=== PATIENT | male | born 1970 | race American Indian/Alaskan Native ===

== ENCOUNTER 2021-08-26 08:50 | Inpatient (IN) | payer MEDICAID ==
[2021-08-26] MEDS ORDERED: IPRATROPIUM 0.02% NEBU 2.5 ML IH ONE (09:47)
[2021-08-26] MEDS ORDERED: ALBUTEROL 2.5 MG/3 ML NEBU IH ONE (09:47)
--- NOTE | 2021-08-26 10:47 | XRay Report ---
CHEST 1 VIEW INDICATION: Dyspnea. COMPARISON: None FINDINGS: Support devices: None. Heart: Within normal limits. Lungs/Pleura: Mild central pulmonary venous congestion is suspected. No convincing infiltrate, pleura l effusion or pneumothorax. Additional findings: None. IMPRESSION: Mild pulmonary venous congestion Signer Name: Ian Woodard Jr, MD Signed: 08/26/2021 10:43 AM Workstation Name: [id number]
[2021-08-26 10:50] LABS: Hematocrit 53.3 % (35.5-45.6); Mean Corpuscular HGB Conc 32 % (32-34); Mean Corpuscular Volume 100 fl (84-94); Platelet Count 295 K/mm3 (140-440); Red Blood Count 5.33 M/mm3 (3.65-5.03); Red Cell Distribution Width 15.5 % (13.2-15.2)
[2021-08-26 11:11] LABS: Creatine Kinase MB 3.2 ng/mL (0.0-4.0)
[2021-08-26 11:12] LABS: Alanine Aminotransferase 24 units/L (7-56); Albumin 3.7 g/dL (3.9-5); BUN/Creatinine Ratio 8; Blood Urea Nitrogen 7 mg/dL (9-20); Calcium 8.8 mg/dL (8.4-10.2); Hemolysis Index 3
[2021-08-26 11:14] LABS: Bacteria,Urine 1+ /HPF (Negative); Bilirubin,Urine NEG (Negative); Blood,Urine SM (Negative); Color,Urine Yellow (Yellow); Hyaline Casts,Urine 1 /LPF; Mucus,Urine FEW /HPF
[2021-08-26 11:37] LABS: Amphetamine Screen,Urine Negative; Benzodiazepines Screen,Urine Negative; Cannabinoid Screen,Urine Negative; Methadone Screen,Urine Negative; Opiate Screen,Urine Negative
[2021-08-26 11:54] LABS: Cocaine Screen,Urine Positive
[2021-08-26 12:39] LABS: Total Cells Counted 100
[2021-08-26 12:40] LABS: Basophils % (Manual) 0 % (0.0-1.8); Eosinophils % (Manual) 0 % (0.0-4.3); Macrocytosis 1+; Platelet Estimate Consistent w Auto
--- NOTE | 2021-08-26 14:26 | Emergency Department Report ---
ED Shortness of Breath HPI - General Chief Complaint: Dyspnea/Respdistress Stated Complaint: SOB Time Seen by Provider: 08/26/21 09:47 Source: patient Mode of arrival: Wheelchair Limitations: No Limitations, Physical Limitation - History of Present Illness Initial Comments: Pt drove self to ER, called the triage from his car stating he was too SOB to ge t into the ER. States he is in a white toyota cecilia in the police parking. Staff out to the parking area, no car there. Pt then found in the ED, got himself in. SOB, sats 65% on RA. O2 per Nonbrebreather mask placed and sats up to 100%. States has been SOB x a week. MD Complaint: shortness of breath -: Gradual, days(s) Improves With: oxygen, rest Worsens With: exertion Associated Symptoms: denies other symptoms Treatments Prior to Arrival: none - Related Data Home Oxygen Therapy: No Home Medications Medication Instructions Recorded Confirmed Last Taken amLODIPine 08/26/21 1 Day Ago ~08/25/21 Allergies Allergy/AdvReac Type Severity Reaction Status Date / Time No Known Allergies Allergy Unverified 08/26/21 11:34 ED Review of Systems ROS: Stated complaint: SOB Other details as noted in HPI Constitutional: denies: chills, fever Eyes: denies: eye pain, eye discharge, vision change ENT: denies: ear pain, throat pain Respiratory: denies: cough, shortness of breath, wheezing Cardiovascular: denies: chest pain, palpitations Endocrine: no symptoms reported Gastrointestinal: denies: abdominal pain, nausea, diarrhea Genitourinary: denies: urgency, dysuria Musculoskeletal: denies: back pain, joint swelling, arthralgia Skin: denies: rash, lesions Neurological: denies: headache, weakness, paresthesias Psychiatric: denies: anxiety, depression Hematological/Lymphatic: denies: easy bleeding, easy bruising ED Past Medical Hx - Past Medical History Previous Medical History?: No Hx Hypertension: No Hx CVA: No - Medications Home Medications: Home Medications Medication Instructions Recorded Confirmed Last Taken Type amLODIPine 08/26/21 1 Day Ago History ~08/25/21 ED Physical Exam - General Limitations: No Limitations, Physical Limitation General appearance: alert, in distress - Head Head exam: Present: atraumatic, normocephalic - Eye Eye exam: Present: normal appearance - ENT ENT exam: Present: mucous membranes moist - Neck Neck exam: Present: normal inspection - Respiratory Respiratory exam: Present: decreased breath sounds. Absent: respiratory distress - Cardiovascular Cardiovascular Exam: Present: regular rate, normal rhythm. Absent: systolic murmur, diastolic murmur, rubs, gallop - GI/Abdominal GI/Abdominal exam: Present: soft, normal bowel sounds - Rectal Rectal exam: Present: deferred - Extremities Exam Extremities exam: Present: normal inspection - Back Exam Back exam: Present: normal inspection - Neurological Exam Neurological exam: Present: alert, oriented X3 - Psychiatric Psychiatric exam: Present: normal affect, normal mood - Skin Skin exam: Present: warm, dry, intact, normal color. Absent: rash ED Course Vital Signs 08/26/21 08/26/21 08/26/21 09:10 09:14 09:48 Temperature 98.2 F Pulse Rate 101 H Respiratory 28 H Rate Blood Pressure Blood Pressure 141/67 [Right] O2 Sat by Pulse 65 L 100 93 Oximetry 08/26/21 08/26/21 08/26/21 10:01 10:15 10:31 Temperature Pulse Rate 98 H 93 H 95 H Respiratory 26 H 22 25 H Rate Blood Pressure 124/65 121/67 135/91 Blood Pressure [Right] O2 Sat by Pulse 95 96 97 Oximetry 08/26/21 08/26/21 08/26/21 10:45 11:01 11:15 Temperature Pulse Rate 95 H 98 H 94 H Respiratory 28 H 25 H 23 Rate Blood Pressure 131/61 150/80 147/78 Blood Pressure [Right] O2 Sat by Pulse 98 96 94 Oximetry 08/26/21 08/26/21 08/26/21 11:31 11:36 11:45 Temperature Pulse Rate 93 H 93 H Respiratory 23 22 21 Rate Blood Pressure 138/65 143/62 Blood Pressure [Right] O2 Sat by Pulse 95 96 96 Oximetry 08/26/21 12:01 Temperature Pulse Rate 93 H Respiratory 24 Rate Blood Pressure 132/69 Blood Pressure [Right] O2 Sat by Pulse 95 Oximetry ED Medical Decision Making - Lab Data Result diagrams: 08/26/21 10:13 08/26/21 10:13 Critical care attestation.: If time is entered above; I have spent that time in minutes in the direct care of this critically ill patient, excluding procedure time. ED Disposition Clinical Impression: SOB (shortness of breath), Respiratory failure Disposition: ADMITTED INPATIENT Is pt being admited?: Yes Does the pt Need Aspirin: No Condition: Stable Referrals: PRIMARY CARE, [Primary Care Provider] - 3-5 Days
--- NOTE | 2021-08-26 14:37 | Cat Scan Report ---
CTA CHEST WITH CONTRAST INDICATION / CLINICAL INFORMATION: SOB. TECHNIQUE: Axial CT images were obtained through the chest after injection of 90 cc of Omnipaque 350 IV contrast. 3 plane MIP and/or 3D reconstructions were produced. All CT scans at this location are p erformed using CT dose reduction for ALARA by means of automated exposure control. COMPARISON: Chest radiograph dated 08/26/2021 FINDINGS: PULMONARY ARTERIES: No pulmonary emboli. THORACIC AORTA: No significant abnormality. HEART: No significant abnormality. CORONARY ARTERY CALCIFICATION: None. MEDIASTINUM / PORFIRIO: No significant abnormality. PLEURA: There is a small left pleural effusion which appears to be loculated. No pneumothorax. LUNGS: There is some mosaic attenuation the lungs which may represent edema or small airways disease. There is some minimal peripheral groundglass density in the right upper lung zone. There is atelecta sis in the lower lobes. ADDITIONAL FINDINGS: None. UPPER ABDOMEN: There is fatty infiltration of the liver. SKELETAL STRUCTURES: No acute abnormality. IMPRESSION: 1. No CT evidence for pulmonary embolism. 2. There is a small loculated appearing left pleural effusion. There is mild atelectasis in the lower lobes. There is some mild mosaic attenuation the lungs which is not specific could represent edema o r lower airways disease. There is some minimal peripheral groundglass density in the right upper lobe . Signer Name: Erick Lobo MD Signed: 08/26/2021 2:33 PM Workstation Name: [id number]
--- NOTE | 2021-08-26 15:33 | History and Physical Report ---
History of Present Illness Chief complaint: I cannot breathe History of present illness: 50 YO Male with Obesity Hypoventilation Syndrome, HTN, COPD, Nicotine Dependence presents to ED for evaluation. Patient reports "I cannot breathe". Patient states that he has experienced difficulty breathing over the past 1 week with persistent and worsening symptoms over the same timeframe. Patient transported to [facility] via private vehicle for further care and evaluation of the aforementioned symptoms. The patient was seen and evaluated in the emergency department. All lab and imaging studies reviewed. Patient found to have a pulse oximetry of 65% on room air which is consistent with acute hypoxemic respiratory failure. The patient was placed on supplemental oxygen via nonrebreather mask with mild improvement in symptoms. Patient continued to exhibit shortness of breath. Patient found to be tripoding, using sensory muscles to breathe. Patient is unable to speak in complete sentences. Patient placed on noninvasive positive pressure ventilation with mild improvement in symptoms. Patient also found to have right upper lobe pneumonia. Patient admitted to medical floor and initiated on pneumonia protocol. Patient denies fever, chills, chest pain, palpitation, skin rash, recent contact, trauma, unilateral leg swelling, calf pain, individual/family history of DVT/PE/bleeding/blood clotting disorders, or known exposure to COVID-19. No prior admission for review. All medication listed at time of admission has been reconciled. Advanced care planning conducted in ED. Past History Past Medical History: hypertension Past Surgical History: No surgical history, Other (Reviewed) Social history: single, smoking. denies: alcohol abuse, prescription drug abuse Family history: diabetes, hypertension Medications and Allergies Allergies Allergy/AdvReac Type Severity Reaction Status Date / Time No Known Allergies Allergy Unverified 08/26/21 11:34 Home Medications Medication Instructions Recorded Confirmed Last Taken Type amLODIPine 08/26/21 1 Day Ago History ~08/25/21 Review of Systems Constitutional: no weight loss, no weight gain, no fever, no chills Ears, nose, mouth and throat: no ear discharge, no nasal congestion Cardiovascular: no chest pain, no rapid/irregular heart beat, no edema Respiratory: cough with sputum, shortness of breath, no cough, no excessive sp utum Gastrointestinal: no abdominal pain, no nausea, no constipation Genitourinary Male: no hematuria, no flank pain, no discharge, no urinary frequency, no urinary hesitancy Rectal: no pain, no incontinence, no bleeding Musculoskeletal: no neck stiffness, no neck pain, no shooting arm pain Integumentary: no rash, no redness, no sores, no boils Neurological: no head injury, no paralysis, no weakness, no parathesias, no tingling Psychiatric: no anxiety, no memory loss, no sleep disturbances, no change in appetite, no change in libido, no disorientation Endocrine: no cold intolerance, no heat intolerance, no excessive thirst, no polyuria, no excessive sweating Hematologic/Lymphatic: no easy bruising, no easy bleeding Allergic/Immunologic: no urticaria, no allergic rhinitis, no wheezing Exam - Constitutional Vitals: Temp Pulse Resp BP Pulse Ox 98.2 F 93 H 24 132/69 95 08/26/21 09:10 08/26/21 12:01 08/26/21 12:01 08/26/21 12:01 08/26/21 12:01 General appearance: Present: mild distress, obese - EENT Eyes: Present: PERRL ENT: hearing intact, clear oral mucosa - Neck Neck: Present: supple, normal ROM - Respiratory Respiratory effort: labored, accessory muscle use, stridor Respiratory: bilateral: diminished, rhonchi - Cardiovascular Heart Sounds: Present: S1 & S2. Absent: rub, click - Extremities Extremities: pulses symmetrical, No edema Peripheral Pulses: within normal limits - Abdominal General gastrointestinal: Present: soft, non-tender, non-distended, normal bowel sounds Male genitourinary: Present: normal - Integumentary Integumentary: Present: clear, warm, dry - Musculoskeletal Musculoskeletal: gait normal, strength equal bilaterally - Psychiatric Psychiatric: appropriate mood/affect, intact judgment & insight - Neurologic Neurologic: CNII-XII intact, moves all extremities HEART Score - HEART Score Troponin: Troponin T < 0.010 ng/mL (0.00-0.029) 08/26/21 10:13 Results - Labs CBC & Chem 7: 08/26/21 10:13 08/26/21 10:13 Labs: Abnormal lab results 08/26/21 08/26/21 08/26/21 Range/Units 10:13 10:13 10:26 RBC 5.33 H (3.65-5.03) M/mm3 Hgb 17.0 H (11.8-15.2) gm/dl Hct 53.3 H (35.5-45.6) % MCV 100 H (84-94) fl RDW 15.5 H (13.2-15.2) % Seg Neuts % (Manual) 84.0 H (40.0-70.0) % Lymphocytes % (Manual) 8.0 L (13.4-35.0) % Monocytes % (Manual) 8.0 H (0.0-7.3) % Seg Neutrophils # Man 8.7 H (1.8-7.7) K/mm3 Lymphocytes # (Manual) 0.8 L (1.2-5.4) K/mm3 D-Dimer (0-234) ng/mlDDU Potassium 3.5 L (3.6-5.0) mmol/L Chloride 95.8 L (98-107) mmol/L Carbon Dioxide 32 H (22-30) mmol/L BUN 7 L (9-20) mg/dL Glucose 170 H (75-100) mg/dL Albumin 3.7 L (3.9-5) g/dL Urine WBC (Auto) 48.0 H (0.0-6.0) /HPF 08/26/21 Range/Units 11:00 RBC (3.65-5.03) M/mm3 Hgb (11.8-15.2) gm/dl Hct (35.5-45.6) % MCV (84-94) fl RDW (13.2-15.2) % Seg Neuts % (Manual) (40.0-70.0) % Lymphocytes % (Manual) (13.4-35.0) % Monocytes % (Manual) (0.0-7.3) % Seg Neutrophils # Man (1.8-7.7) K/mm3 Lymphocytes # (Manual) (1.2-5.4) K/mm3 D-Dimer 356.97 H (0-234) ng/mlDDU Potassium (3.6-5.0) mmol/L Chloride (98-107) mmol/L Carbon Dioxide (22-30) mmol/L BUN (9-20) mg/dL Glucose (75-100) mg/dL Albumin (3.9-5) g/dL Urine WBC (Auto) (0.0-6.0) /HPF Assessment and Plan - Patient Problems (1) Acute hypoxemic respiratory failure Current Visit: Yes Status: Acute Plan to address problem: Chest x-ray, supplemental oxygen, pulse oximetry, nebulizer therapy, D-dimer, CTA chest, noninvasive positive pressure ventilation as clinically indicated. (2) Pneumonia Current Visit: Yes Status: Acute Plan to address problem: Pneumonia protocol: Chest x-ray, CBC, CMP, supplemental oxygen, pulse oximetry, nebulizer therapy, IV antibiotic therapy, blood culture. (3) Hypertension Current Visit: Yes Status: Acute Qualifiers: Hypertension type: primary hypertension Qualified Code(s): I10 - Essential (primary) hypertension Plan to address problem: Monitor blood pressure every shift, continue medical management. (4) COPD (chronic obstructive pulmonary disease) Current Visit: Yes Status: Acute Qualifiers: COPD type: COPD with acute lower respiratory infection Qualified Code(s): J44.0 - Chronic obstructive pulmonary disease with (acute) lower respiratory infection Plan to address problem: Supplemental oxygen, pulse oximetry, nebulizer therapy, IV steroid therapy, chest x-ray, supportive care, CT chest. (5) Obesity hypoventilation syndrome Current Visit: Yes Status: Acute Plan to address problem: Balanced diet, increase physical activity at discharge, outpatient pulmonary follow-up for sleep study. (6) Cocaine dependence Current Visit: Yes Status: Acute Qualifiers: Substance use status: uncomplicated Qualified Code(s): F14.20 - Cocaine dependence, uncomplicated Plan to address problem: Patient counseled regarding abstinence. Patient acknowledges understanding and agreement with care plan. (7) Nicotine dependence Current Visit: Yes Status: Acute Qualifiers: Nicotine product type: cigarettes Substance use status: in withdrawal Qualified Code(s): F17.213 - Nicotine dependence, cigarettes, with withdrawal Plan to address problem: Smoking cessation counseling, behavior change counseling, +15 minutes. (8) DVT prophylaxis Current Visit: Yes Status: Acute Plan to address problem: SCD to bilateral lower extremities while in bed, patient is ambulatory (9) Advance care planning Current Visit: Yes Status: Acute Plan to address problem: Disease education conducted, care plan discussed, diagnoses discussed, prognosis discussed, patient is full code. Patient acknowledges understanding and agreement with care plan, +30 minutes.
[2021-08-26] MEDS ORDERED: ONDANSETRON 4 MG/2 ML INJ IV PRN (16:00)
[2021-08-26] MEDS ORDERED: ALBUTEROL 2.5 MG/3 ML NEBU IH PRN (17:00)
[2021-08-26] MEDS ORDERED: oxyCODONE /ACETAMINOPHEN 5-325MG TAB PO PRN (17:00)
[2021-08-26] MEDS ORDERED: ACETAMINOPHEN 325 MG TAB PO PRN (17:00)
[2021-08-26] MEDS ORDERED: HYDROmorphone 1 MG/1 ML INJ IV PRN (17:00)
[2021-08-26] MEDS: cefTRIAXone/NS 2 GM/100 ML 2 GM/100 ML BAG IV SCH (17:23)
[2021-08-26] MEDS: methylPREDNISolone Sod Succinate 40 MG/1 ML INJ IV SCH (22:51)
[2021-08-27 08:23] LABS: Hematocrit 52.1 % (35.5-45.6); Hemoglobin 16.6 gm/dl (11.8-15.2); Mean Corpuscular HGB Conc 32 % (32-34); Mean Corpuscular Volume 100 fl (84-94); Platelet Count 266 K/mm3 (140-440); Red Blood Count 5.19 M/mm3 (3.65-5.03); Red Cell Distribution Width 15.2 % (13.2-15.2)
--- NOTE | 2021-08-27 08:23 | Progress Note ---
Assessment and Plan - Patient Problems (1) Acute hypoxemic respiratory failure Current Visit: Yes Status: Acute Plan to address problem: Chest x-ray, supplemental oxygen, pulse oximetry, nebulizer therapy, D-dimer, CTA chest, noninvasive positive pressure ventilation as clinically indicated. Patient currently on 5 L. We will continue to wean as tolerated. Diuresis Smoking cessation Weight loss and increased exercise. (2) Pneumonia Current Visit: Yes Status: Acute Plan to address problem: Pneumonia protocol: Chest x-ray, CBC, CMP, supplemental oxygen, pulse oximetry, nebulizer therapy, Azithromycin Follow blood culture data. (3) Hypertension Current Visit: Yes Status: Acute Qualifiers: Hypertension type: primary hypertension Qualified Code(s): I10 - Essential (primary) hypertension Plan to address problem: Monitor blood pressure every shift, continue medical management. If remains elevated a.m. we will add losartan 50 mg daily. (4) COPD (chronic obstructive pulmonary disease) Current Visit: Yes Status: Acute Qualifiers: COPD type: COPD with acute lower respiratory infection Qualified Code(s): J44.0 - Chronic obstructive pulmonary disease with (acute) lower respiratory infection Plan to address problem: Supplemental oxygen, pulse oximetry, nebulizer therapy, IV steroid therapy, chest x-ray, supportive care, CT chest. (5) Obesity hypoventilation syndrome Current Visit: Yes Status: Acute Plan to address problem: Balanced diet, increase physical activity at discharge, outpatient pulmonary follow-up for sleep study. (6) Cocaine dependence Current Visit: Yes Status: Acute Qualifiers: Substance use status: uncomplicated Qualified Code(s): F14.20 - Cocaine dependence, uncomplicated Plan to address problem: Patient counseled regarding abstinence. Patient acknowledges understanding and agreement with care plan. (7) Nicotine dependence Current Visit: Yes Status: Acute Qualifiers: Nicotine product type: cigarettes Substance use status: in withdrawal Qualified Code(s): F17.213 - Nicotine dependence, cigarettes, with withdrawal Plan to address problem: Smoking cessation counseling, behavior change counseling, +15 minutes. (8) DVT prophylaxis Current Visit: Yes Status: Acute Plan to address problem: SCD to bilateral lower extremities while in bed, patient is ambulatory (9) Advance care planning Current Visit: Yes Status: Acute Plan to address problem: Disease education conducted, care plan discussed, diagnoses discussed, prognosis discussed, patient is full code. Patient acknowledges understanding and agreement with care plan, +24. Subjective Date of service: 08/27/21 Principal diagnosis: Acute hypoxic respiratory failure #2 pneumonia Interval history: 50 YO Male with Obesity Hypoventilation Syndrome, HTN, COPD, Nicotine Dependence presents to ED for evaluation. Patient reports "I cannot breathe". Patient states that he has experienced difficulty breathing over the past 1 week with persistent and worsening symptoms over the same timeframe. Patient transported to [facility] via private vehicle for further care and evaluation of the aforementioned symptoms. The patient was seen and evaluated in the emergency department. All lab and imaging studies reviewed. Patient found to have a pulse oximetry of 65% on room air which is consistent with acute hypoxemic respiratory failure. 08/26/2021 Patient now on 5 L of oxygen. Patient loud snoring upon presentation to the [facility] consistent with obstructive sleep apnea. Objective - Constitutional Vitals: Vital Signs - 12hr 08/26/21 08/26/21 08/26/21 20:31 20:41 20:51 Temperature Pulse Rate 96 H 101 H 97 H Respiratory 25 H 29 H 24 Rate Blood Pressure 140/72 139/67 139/67 Blood Pressure [Right] O2 Sat by Pulse 96 96 96 Oximetry 08/26/21 08/26/21 08/26/21 21:01 21:11 21:21 Temperature Pulse Rate 96 H 100 H 97 H Respiratory 26 H 25 H 25 H Rate Blood Pressure 136/69 121/73 121/73 Blood Pressure [Right] O2 Sat by Pulse 95 95 96 Oximetry 08/26/21 08/26/21 08/26/21 21:31 21:41 21:51 Temperature Pulse Rate 96 H 104 H 110 H Respiratory 27 H 25 H 30 H Rate Blood Pressure 127/60 128/72 128/72 Blood Pressure [Right] O2 Sat by Pulse 94 91 94 Oximetry 08/26/21 08/26/21 08/26/21 22:01 22:11 22:21 Temperature Pulse Rate 103 H 98 H 95 H Respiratory 28 H 24 23 Rate Blood Pressure 128/72 128/72 128/72 Blood Pressure [Right] O2 Sat by Pulse 94 94 93 Oximetry 08/26/21 08/26/21 08/26/21 22:31 22:55 23:10 Temperature Pulse Rate 103 H 101 H Respiratory 27 H 20 Rate Blood Pressure 128/72 121/78 Blood Pressure 128/72 [Right] O2 Sat by Pulse 95 93 95 Oximetry 08/26/21 08/26/21 08/27/21 23:11 23:53 03:59 Temperature 97.7 F Pulse Rate 103 H Respiratory 22 Rate Blood Pressure 156/70 Blood Pressure [Right] O2 Sat by Pulse 94 92 93 Oximetry 08/27/21 04:00 Temperature 98.6 F Pulse Rate 99 H Respiratory 22 Rate Blood Pressure Blood Pressure 154/81 [Right] O2 Sat by Pulse 92 Oximetry General appearance: Present: no acute distress, obese, other (Loud snoring) - EENT Eyes: PERRL, EOM intact ENT: other (Large neck circumference) - Neck Neck: no rigidity, no masses or JVD, no cervical LAD, no carotid bruits - Respiratory Respiratory: bilateral: diminished, rhonchi - Cardiovascular Rhythm: regular Heart Sounds: Present: S1 & S2. Absent: gallop, rub Extremities: Full ROM Extremity abnormal: edema, other (Normal pulses no erythema no ulcerations) - Gastrointestinal General gastrointestinal: Present: soft, normal bowel sounds, other (Morbidly obese ascites) - Integumentary Integumentary: clear, warm, dry - Musculoskeletal Musculoskeletal: 1, strength equal bilaterally - Neurologic Neurologic: moves all extremities - Psychiatric Psychiatric: memory intact, appropriate mood/affect, intact judgment & insight - Labs CBC & Chem 7: 08/27/21 07:49 08/27/21 07:49 Labs: Abnormal lab results 08/26/21 08/26/21 08/26/21 Range/Units 10:13 10:13 10:26 RBC 5.33 H (3.65-5.03) M/mm3 Hgb 17.0 H (11.8-15.2) gm/dl Hct 53.3 H (35.5-45.6) % MCV 100 H (84-94) fl RDW 15.5 H (13.2-15.2) % Seg Neuts % (Manual) 84.0 H (40.0-70.0) % Lymphocytes % (Manual) 8.0 L (13.4-35.0) % Monocytes % (Manual) 8.0 H (0.0-7.3) % Seg Neutrophils # Man 8.7 H (1.8-7.7) K/mm3 Lymphocytes # (Manual) 0.8 L (1.2-5.4) K/mm3 D-Dimer (0-234) ng/mlDDU Potassium 3.5 L (3.6-5.0) mmol/L Chloride 95.8 L (98-107) mmol/L Carbon Dioxide 32 H (22-30) mmol/L BUN 7 L (9-20) mg/dL Glucose 170 H (75-100) mg/dL Albumin 3.7 L (3.9-5) g/dL Urine WBC (Auto) 48.0 H (0.0-6.0) /HPF 08/26/21 Range/Units 11:00 RBC (3.65-5.03) M/mm3 Hgb (11.8-15.2) gm/dl Hct (35.5-45.6) % MCV (84-94) fl RDW (13.2-15.2) % Seg Neuts % (Manual) (40.0-70.0) % Lymphocytes % (Manual) (13.4-35.0) % Monocytes % (Manual) (0.0-7.3) % Seg Neutrophils # Man (1.8-7.7) K/mm3 Lymphocytes # (Manual) (1.2-5.4) K/mm3 D-Dimer 356.97 H (0-234) ng/mlDDU Potassium (3.6-5.0) mmol/L Chloride (98-107) mmol/L Carbon Dioxide (22-30) mmol/L BUN (9-20) mg/dL Glucose (75-100) mg/dL Albumin (3.9-5) g/dL Urine WBC (Auto) (0.0-6.0) /HPF HEART Score - HEART Score Troponin: Troponin T < 0.010 ng/mL (0.00-0.029) 08/26/21 10:13
[2021-08-27 08:34] LABS: BUN/Creatinine Ratio 8; Blood Urea Nitrogen 8 mg/dL (9-20); Calcium 8.5 mg/dL (8.4-10.2); Hemolysis Index 8
[2021-08-27 09:58] LABS: Basophils % (Manual) 0 % (0.0-1.8); Eosinophils % (Manual) 0 % (0.0-4.3); RBC Morphology Normal; Total Cells Counted 100
[2021-08-27 09:59] LABS: Large Platelets 1+; Platelet Estimate Consistent w Auto
[2021-08-27] MEDS: methylPREDNISolone Sod Succinate 40 MG/1 ML INJ IV SCH ×2 (10:43→21:15)
[2021-08-27] MEDS: AZITHROMYCIN 250 MG TAB PO SCH (10:43)
--- NOTE | 2021-08-27 11:03 | Consultation ---
History of Present Illness Consult date: 08/27/21 Reason for consult: COPD, hypoxemia, obstructive sleep apnea History of present illness: 50 y/o morbidly male with presumed COPD, HTN, tobacco abuse and likely SHAY that is untreated admitted with acute hypoxic respiratory failure. Patient is not able to provide much history but he is not compliant with therapy or follow ups. Past History Past Medical History: hypertension Past Surgical History: No surgical history, Other (Reviewed) Social history: single, smoking. denies: alcohol abuse, prescription drug abuse Family history: diabetes, hypertension Medications and Allergies Allergies Allergy/AdvReac Type Severity Reaction Status Date / Time No Known Allergies Allergy Unverified 08/26/21 11:34 Home Medications Medication Instructions Recorded Confirmed Last Taken Type amLODIPine 10 mg PO DAILY 08/26/21 08/27/21 1 Day Ago History ~08/25/21 Active Meds: Active Medications Acetaminophen (Acetaminophen 325 Mg Tab) 650 mg PO Q4H PRN PRN Reason: Pain MILD(1-3)/Fever >100.5/ROSALES Albuterol (Albuterol 2.5 Mg/3 Ml Nebu) 2.5 mg IH Q4HRT PRN PRN Reason: Shortness Of Breath Azithromycin (Azithromycin 250 Mg Tab) 500 mg PO QDAY HERBERTH; Protocol Stop: 08/31/21 10:01 Last Admin: 08/27/21 10:43 Dose: 500 mg Hydromorphone HCl (Hydromorphone 1 Mg/1 Ml Inj) 0.5 mg IV Q23H PRN PRN Reason: Pain , Severe (7-10) Ceftriaxone Sodium (Rocephin/Ns 2 Gm/100 Ml) 2 gm in 100 mls @ 200 mls/hr IV Q24H HERBERTH; Protocol Stop: 08/31/21 16:59 Last Admin: 08/26/21 17:23 Dose: 200 mls/hr Methylprednisolone Sodium Succinate (Methylprednisolone Sod Succinate 40 Mg/1 Ml Inj) 40 mg IV Q12HR HERBERTH Last Admin: 08/27/21 10:43 Dose: 40 mg Ondansetron HCl (Ondansetron 4 Mg/2 Ml Inj) 4 mg IV Q8H PRN PRN Reason: Nausea And Vomiting Oxycodone/Acetaminophen (Oxycodone /Acetaminophen 5-325mg Tab) 1 tab PO Q16H PRN PRN Reason: Pain, Moderate (4-6) Sodium Chloride (Sodium Chloride 0.9% 10 Ml Flush Syringe) 10 ml IV BID HERBERTH Last Admin: 08/27/21 10:42 Dose: 10 ml Sodium Chloride (Sodium Chloride 0.9% 10 Ml Flush Syringe) 10 ml IV PRN PRN PRN Reason: LINE FLUSH Review of Systems All systems: negative Physical Examination Vital signs: Vital Signs Temp Pulse Resp BP Pulse Ox 98.2 F 101 H 28 H 141/67 65 L 08/26/21 09:10 08/26/21 09:10 08/26/21 09:10 08/26/21 09:10 08/26/21 09:10 General appearance: no acute distress, alert, other (morbidly obese) Eyes: non-icteric ENT: oropharynx moist Neck: supple, other (large in circumference) Effort: mildly labored Ascultation: Bilateral: diminished breath sounds, rales Percussion: Bilateral: not dull Tactile fremitus: Bilateral: normal Cardiovascular: regular rate and rhythm Gastrointestinal: normoactive bowel sounds, soft Extremities: anasarca Musculoskeletal: no deformities normal mental status, non-focal exam mood appropriate, affect normal Results - Laboratory Findings CBC and BMP: 08/27/21 07:49 08/27/21 07:49 PT/INR, D-dimer PT 14.3 Sec. (12.2-14.9) 08/26/21 10:13 INR 1.00 (0.87-1.13) 08/26/21 10:13 D-Dimer 356.97 ng/mlDDU (0-234) H 08/26/21 11:00 Abnormal lab findings: Abnormal Labs 08/26/21 08/26/21 08/26/21 10:13 10:13 10:26 RBC 5.33 H Hgb 17.0 H Hct 53.3 H MCV 100 H RDW 15.5 H Seg Neuts % (Manual) 84.0 H Lymphocytes % (Manual) 8.0 L Monocytes % (Manual) 8.0 H Seg Neutrophils # Man 8.7 H Lymphocytes # (Manual) 0.8 L D-Dimer Potassium 3.5 L Chloride 95.8 L Carbon Dioxide 32 H BUN 7 L Glucose 170 H Albumin 3.7 L Urine WBC (Auto) 48.0 H 08/26/21 08/27/21 08/27/21 11:00 07:49 07:49 RBC 5.19 H Hgb 16.6 H Hct 52.1 H MCV 100 H RDW Seg Neuts % (Manual) 90.0 H Lymphocytes % (Manual) 3.0 L Monocytes % (Manual) Seg Neutrophils # Man 9.4 H Lymphocytes # (Manual) 0.3 L D-Dimer 356.97 H Potassium Chloride 94.4 L Carbon Dioxide 35 H BUN 8 L Glucose 183 H Albumin Urine WBC (Auto) - Diagnostic Findings Chest x-ray: image reviewed CT scan - chest: image reviewed Assessment and Plan 50 y/o morbidly obese male with acute respiratory failure 1. Echo 2. Lasix 20mg IV today 3. Blood pressure control 4. Weight loss 5. Smoking cessation
[2021-08-27] MEDS ORDERED: FUROSEMIDE 20 MG/2 ML INJ IV SCH (11:30)
[2021-08-27] MEDS: cefTRIAXone/NS 2 GM/100 ML 2 GM/100 ML BAG IV SCH (17:23)
--- NOTE | 2021-08-28 07:39 | Progress Note ---
Assessment and Plan - Patient Problems (1) Acute hypoxemic respiratory failure Current Visit: Yes Status: Acute Plan to address problem: Chest x-ray, supplemental oxygen, pulse oximetry, nebulizer therapy, D-dimer, CTA chest, noninvasive positive pressure ventilation as clinically indicated. Patient currently on 5 L. We will continue to wean as tolerated. Diuresis Smoking cessation Weight loss and increased exercise. (2) Pneumonia Current Visit: Yes Status: Acute Plan to address problem: Pneumonia protocol: Chest x-ray, CBC, CMP, supplemental oxygen, pulse oximetry, nebulizer therapy, Azithromycin Follow blood culture data. (3) Hypertension Current Visit: Yes Status: Acute Qualifiers: Hypertension type: primary hypertension Qualified Code(s): I10 - Essential (primary) hypertension Plan to address problem: Monitor blood pressure every shift, continue medical management. Patient has optimal control. Will hold amlodipine. Hold losartan. Restart medications as blood pressure requires. (4) COPD (chronic obstructive pulmonary disease) Current Visit: Yes Status: Acute Qualifiers: COPD type: COPD with acute lower respiratory infection Qualified Code(s): J44.0 - Chronic obstructive pulmonary disease with (acute) lower respiratory infection Plan to address problem: Patient may be candidate for home O2. Will follow weaning parameters today. Supplemental oxygen, pulse oximetry, nebulizer therapy, IV steroid therapy, chest x-ray, supportive care, CT chest. (5) Obesity hypoventilation syndrome Current Visit: Yes Status: Acute Plan to address problem: Balanced diet, increase physical activity at discharge, outpatient pulmonary follow-up for sleep study. (6) Cocaine dependence Current Visit: Yes Status: Acute Qualifiers: Substance use status: uncomplicated Qualified Code(s): F14.20 - Cocaine dependence, uncomplicated Plan to address problem: Patient counseled regarding abstinence. Patient acknowledges understanding and agreement with care plan. (7) Nicotine dependence Current Visit: Yes Status: Acute Qualifiers: Nicotine product type: cigarettes Substance use status: in withdrawal Qualified Code(s): F17.213 - Nicotine dependence, cigarettes, with withdrawal Plan to address problem: Smoking cessation counseling, behavior change counseling, +15 minutes. (8) DVT prophylaxis Current Visit: Yes Status: Acute Plan to address problem: SCD to bilateral lower extremities while in bed, patient is ambulatory (9) Advance care planning Current Visit: Yes Status: Acute Plan to address problem: Disease education conducted, care plan discussed, diagnoses discussed, prognosis discussed, patient is full code. Patient acknowledges understanding and agreement with care plan, +24. Subjective Date of service: 08/28/21 Principal diagnosis: Acute hypoxic respiratory failure #2 pneumonia Interval history: 50 YO Male with Obesity Hypoventilation Syndrome, HTN, COPD, Nicotine Dependence presents to ED for evaluation. Patient reports "I cannot breathe". Patient states that he has experienced difficulty breathing over the past 1 week with persistent and worsening symptoms over the same timeframe. Patient transported to [facility] via private vehicle for further care and evaluation of the aforementioned symptoms. The patient was seen and evaluated in the emergency department. All lab and imaging studies reviewed. Patient found to have a pulse oximetry of 65% on room air which is consistent with acute hypoxemic respiratory failure. 08/27/2021 Patient now on 5 L of oxygen. Patient loud snoring upon presentation to the [facility] consistent with obstructive sleep apnea. 08/28/2021. Patient now weaned down to 4 L. Highly suspect obesity hypoventilation syndrome. We will wean patient down to 3 L today. Anticipated discharge in a.m. Patient may need to go home with oxygen. Objective - Constitutional Vitals: Vital Signs - 12hr 08/27/21 08/27/21 08/28/21 22:00 22:12 01:00 Temperature 98.8 F Pulse Rate 86 Respiratory 18 Rate Blood Pressure 117/67 O2 Sat by Pulse 95 95 96 Oximetry General appearance: Present: no acute distress, obese, other (Lateral snoring excessive daytime fatigue.) - EENT Eyes: PERRL, EOM intact ENT: hearing intact, clear oral mucosa - Respiratory Respiratory: bilateral: CTA, rhonchi (Few rhonchi at bases bilaterally.) - Cardiovascular Rhythm: regular Heart Sounds: Present: S1 & S2. Absent: gallop, rub Extremities: pulses intact, No edema, normal color, Full ROM - Gastrointestinal General gastrointestinal: Present: soft, non-tender, other (Obese) - Musculoskeletal Musculoskeletal: 1, strength equal bilaterally - Neurologic Neurologic: moves all extremities - Psychiatric Psychiatric: memory intact, appropriate mood/affect, intact judgment & insight - Labs CBC & Chem 7: 08/27/21 07:49 08/27/21 07:49 Labs: Abnormal lab results 08/27/21 08/27/21 Range/Units 07:49 07:49 RBC 5.19 H (3.65-5.03) M/mm3 Hgb 16.6 H (11.8-15.2) gm/dl Hct 52.1 H (35.5-45.6) % MCV 100 H (84-94) fl Seg Neuts % (Manual) 90.0 H (40.0-70.0) % Lymphocytes % (Manual) 3.0 L (13.4-35.0) % Seg Neutrophils # Man 9.4 H (1.8-7.7) K/mm3 Lymphocytes # (Manual) 0.3 L (1.2-5.4) K/mm3 Chloride 94.4 L (98-107) mmol/L Carbon Dioxide 35 H (22-30) mmol/L BUN 8 L (9-20) mg/dL Glucose 183 H (75-100) mg/dL HEART Score - HEART Score Troponin: Troponin T < 0.010 ng/mL (0.00-0.029) 08/26/21 10:13
[2021-08-28] MEDS: AZITHROMYCIN 250 MG TAB PO SCH (09:13)
[2021-08-28] MEDS: methylPREDNISolone Sod Succinate 40 MG/1 ML INJ IV SCH ×2 (09:13→21:03)
--- NOTE | 2021-08-28 15:11 | Progress Note ---
Assessment and Plan 50 y/o morbidly obese male with acute respiratory failure 08/28/21: Hold on lasix today. Suggest checking labs tomorrow. Continue to wea n FiO2 for sats >88%, suspect patient will need oxygen at discharge. Weight loss. blood pressure control. Will add pulmicort and brovana therapy. Hopeful discharge soon. May need direction for substance abuse 1. Echo 2. Lasix 20mg IV today 3. Blood pressure control 4. Weight loss 5. Smoking cessation Subjective Date of service: 08/28/21 Principal diagnosis: Acute hypoxic respiratory failure #2 pneumonia Interval history: Weaned down to 4 liters. Echo shows preserved EF with really no evidence of pulm HTN. Did put out with lasix yesterday. No labs checked today. Objective Vital Signs - 12hr 08/28/21 08/28/21 08/28/21 08:30 12:38 13:12 Temperature 98.6 F Pulse Rate 80 Respiratory 18 Rate Blood Pressure 167/69 O2 Sat by Pulse 96 94 96 Oximetry Constitutional: no acute distress, alert, other (morbidly obese) Eyes: non-icteric ENT: oropharynx moist Neck: supple, other (large in circumference) Effort: mildly labored Ascultation: Bilateral: diminished breath sounds, rales Percussion: Bilateral: not dull Tactile fremitus: Bilateral: normal Cardiovascular: regular rate and rhythm Gastrointestinal: normoactive bowel sounds, soft Extremities: anasarca Neurologic: normal mental status, non-focal exam Psychiatric: mood appropriate, affect normal CBC and BMP: 08/27/21 07:49 08/27/21 07:49 ABG, PT/INR, D-dimer: PT/INR, D-dimer PT 14.3 Sec. (12.2-14.9) 08/26/21 10:13 INR 1.00 (0.87-1.13) 08/26/21 10:13 D-Dimer 356.97 ng/mlDDU (0-234) H 08/26/21 11:00 Abnormal lab findings: Abnormal Labs 08/26/21 08/26/21 08/26/21 10:13 10:13 10:26 RBC 5.33 H Hgb 17.0 H Hct 53.3 H MCV 100 H RDW 15.5 H Seg Neuts % (Manual) 84.0 H Lymphocytes % (Manual) 8.0 L Monocytes % (Manual) 8.0 H Seg Neutrophils # Man 8.7 H Lymphocytes # (Manual) 0.8 L D-Dimer Potassium 3.5 L Chloride 95.8 L Carbon Dioxide 32 H BUN 7 L Glucose 170 H Albumin 3.7 L Urine WBC (Auto) 48.0 H 08/26/21 08/27/21 08/27/21 11:00 07:49 07:49 RBC 5.19 H Hgb 16.6 H Hct 52.1 H MCV 100 H RDW Seg Neuts % (Manual) 90.0 H Lymphocytes % (Manual) 3.0 L Monocytes % (Manual) Seg Neutrophils # Man 9.4 H Lymphocytes # (Manual) 0.3 L D-Dimer 356.97 H Potassium Chloride 94.4 L Carbon Dioxide 35 H BUN 8 L Glucose 183 H Albumin Urine WBC (Auto)
[2021-08-28] MEDS: amLODIPine 10 MG TAB PO SCH (15:46)
[2021-08-28] MEDS: cefTRIAXone/NS 2 GM/100 ML 2 GM/100 ML BAG IV SCH (17:34)
[2021-08-29] MEDS: AZITHROMYCIN 250 MG TAB PO SCH (09:39)
[2021-08-29] MEDS: amLODIPine 10 MG TAB PO SCH (09:39)
[2021-08-29] MEDS: methylPREDNISolone Sod Succinate 40 MG/1 ML INJ IV SCH ×2 (09:41→21:50)
[2021-08-29] MEDS ORDERED: AMLODIPINE PO SCH (10:00)
[2021-08-29 10:40] LABS: Alanine Aminotransferase 21 units/L (7-56); Albumin 3.4 g/dL (3.9-5); BUN/Creatinine Ratio 13; Blood Urea Nitrogen 10 mg/dL (9-20); Calcium 8.4 mg/dL (8.4-10.2); Hemolysis Index 96
--- NOTE | 2021-08-29 10:40 | Discharge Summary ---
Providers - Providers Date of Admission: 08/26/21 15:33 Date of discharge: 08/29/21 Attending physician: KALPANA CARABALLO 08/26/21 15:49 Consult to Physician [CONS] Routine Comment: Consulting Provider: TATI LY Physician Instructions: Reason For Exam: Obesity hypoventilation syndrome/ILD Primary care physician: FILM WAXER Hospitalization Condition: Fair Pertinent studies: Chest x-ray mild pulmonary edema CT scan chest left-sided pneumonia versus pleural effusion Echocardiogram ejection fraction 60% borderline pulmonary hypertension. Hospital course: Patient 50-year-old with past medical history of hypertension, morbid obesity, tobacco abuse, cocaine use presents with acute episode of shortness of breath dyspnea on exertion. Upon presentation patient found to be morbidly obese with increased neck circumference increased abdominal circumference. Breathing pattern consistent with obesity hypoventilation syndrome, obstructive sleep apnea. Patient was placed on BiPAP did well eventually defervesced down to 7 L then 5 L then 3 L of O2. Patient tolerated 3 L of oxygen with saturations greater than 90%. Patient was educated he needs to stop smoking. Smoking cessation. Cocaine cessation and aggressive weight loss. Patient also informed that it is imperative that he obtains a sleep study as outpatient basis. Patient be discharged home on 3 L oxygen follow-up primary care physician. Patient's primary care physician is at [place] but he does not know the name. Disposition: 01 HOME / SELF CARE / HOMELESS Final Discharge Diagnosis (Prints w/discharge instructions): Acute hypoxic respiratory failure #2 obesity hypoventilation syndrome 3 tobacco abuse - Discharge Diagnoses (1) Acute hypoxemic respiratory failure Status: Resolved Comment: Secondary multifactorial pneumonia, sleep apnea, obesity hypoventilation syndrome. To be discharged on 3 L home O2. Patient will also be discharged on prednisone taper Binh Uribe (2) COPD (chronic obstructive pulmonary disease) Status: Acute Qualifiers: COPD type: COPD with acute lower respiratory infection Qualified Code(s): J44.0 - Chronic obstructive pulmonary disease with (acute) lower respiratory infection (3) Cocaine dependence Status: Acute Qualifiers: Substance use status: uncomplicated Qualified Code(s): F14.20 - Cocaine dependence, uncomplicated Comment: Cocaine cessation. Educated on its role in heart disease. (4) Hypertension Status: Acute Qualifiers: Hypertension type: primary hypertension Qualified Code(s): I10 - Essential (primary) hypertension Comment: Maintain optimal control with current amlodipine. (5) Nicotine dependence Status: Acute Qualifiers: Nicotine product type: cigarettes Substance use status: in withdrawal Qualified Code(s): F17.213 - Nicotine dependence, cigarettes, with withdrawal Comment: Patient states he can stop smoking. Educated on smoking cessation. No medications needed. (6) Obesity hypoventilation syndrome Status: Acute Comment: Patient will require sleep study pulmonology follow-up outpatient. Core Measure Documentation - Palliative Care Palliative Care/ Comfort Measures: Not Applicable - Core Measures Any of the following diagnoses?: none Exam - Constitutional Vitals: Temp Pulse Resp BP Pulse Ox 98.1 F 79 18 121/63 96 08/29/21 04:46 08/29/21 09:39 08/29/21 04:46 08/29/21 09:39 08/29/21 09:02 General appearance: Present: no acute distress - EENT Eyes: Present: PERRL - Respiratory Respiratory effort: normal Respiratory: bilateral: diminished (Morbidly obese) - Cardiovascular Heart Sounds: Present: S1 & S2. Absent: rub, click - Extremities Extremities: pulses symmetrical, No edema - Musculoskeletal Musculoskeletal: gait normal, strength equal bilaterally - Psychiatric Psychiatric: appropriate mood/affect, intact judgment & insight - Neurologic Neurologic: CNII-XII intact, moves all extremities Plan Activity: no restrictions Diet: low cholesterol, low carbohydrate Special Instructions: home oxygen via Follow up with: PRIMARY CARE, [Primary Care Provider] - 3-5 Days Prescriptions: amLODIPine 10 mg PO DAILY #30 tablet levoFLOXacin [Levaquin TAB] 500 mg PO Q24HR #10 tablet ALBUTEROL NEB's [Proventil 0.083% NEBS] 2.5 mg IH Q4HRT PRN #7 nebu PRN Reason: Shortness Of Breath
--- NOTE | 2021-08-29 13:21 | Progress Note ---
Assessment and Plan 50 y/o morbidly obese male with acute respiratory failure 08/29/21: No objection to discharge with oxygen therapy. Weight loss, smoking ce ssation and stop substance abuse. BP control per primary team. Can follow up in office if patient chooses too. 08/28/21: Hold on lasix today. Suggest checking labs tomorrow. Continue to wean FiO2 for sats >88%, suspect patient will need oxygen at discharge. Weight loss. blood pressure control. Will add pulmicort and brovana therapy. Hopeful discharge soon. May need direction for substance abuse 1. Echo 2. Lasix 20mg IV today 3. Blood pressure control 4. Weight loss 5. Smoking cessation Subjective Date of service: 08/29/21 Principal diagnosis: Acute hypoxic respiratory failure #2 pneumonia Interval history: Being discharged today. Qualifies for home O2. Objective Vital Signs - 12hr 08/29/21 08/29/21 08/29/21 04:46 09:02 09:39 Temperature 98.1 F Pulse Rate 79 79 Respiratory 18 Rate Blood Pressure 147/89 121/63 O2 Sat by Pulse 89 96 Oximetry 08/29/21 08/29/21 11:12 13:04 Temperature 98.6 F Pulse Rate 72 Respiratory 20 Rate Blood Pressure 157/74 O2 Sat by Pulse 79 L 97 Oximetry Constitutional: no acute distress, alert, other (morbidly obese) Eyes: non-icteric ENT: oropharynx moist Neck: supple, other (large in circumference) Effort: mildly labored Ascultation: Bilateral: diminished breath sounds, rales Percussion: Bilateral: not dull Tactile fremitus: Bilateral: normal Cardiovascular: regular rate and rhythm Gastrointestinal: normoactive bowel sounds, soft Extremities: anasarca Neurologic: normal mental status, non-focal exam Psychiatric: mood appropriate, affect normal CBC and BMP: 08/27/21 07:49 08/29/21 10:05 ABG, PT/INR, D-dimer: PT/INR, D-dimer PT 14.3 Sec. (12.2-14.9) 08/26/21 10:13 INR 1.00 (0.87-1.13) 08/26/21 10:13 D-Dimer 356.97 ng/mlDDU (0-234) H 08/26/21 11:00 Abnormal lab findings: Abnormal Labs 08/26/21 08/26/21 08/26/21 10:13 10:13 10:26 RBC 5.33 H Hgb 17.0 H Hct 53.3 H MCV 100 H RDW 15.5 H Seg Neuts % (Manual) 84.0 H Lymphocytes % (Manual) 8.0 L Monocytes % (Manual) 8.0 H Seg Neutrophils # Man 8.7 H Lymphocytes # (Manual) 0.8 L D-Dimer Potassium 3.5 L Chloride 95.8 L Carbon Dioxide 32 H BUN 7 L Glucose 170 H Albumin 3.7 L Urine WBC (Auto) 48.0 H 08/26/21 08/27/21 08/27/21 11:00 07:49 07:49 RBC 5.19 H Hgb 16.6 H Hct 52.1 H MCV 100 H RDW Seg Neuts % (Manual) 90.0 H Lymphocytes % (Manual) 3.0 L Monocytes % (Manual) Seg Neutrophils # Man 9.4 H Lymphocytes # (Manual) 0.3 L D-Dimer 356.97 H Potassium Chloride 94.4 L Carbon Dioxide 35 H BUN 8 L Glucose 183 H Albumin Urine WBC (Auto) 08/29/21 10:05 RBC Hgb Hct MCV RDW Seg Neuts % (Manual) Lymphocytes % (Manual) Monocytes % (Manual) Seg Neutrophils # Man Lymphocytes # (Manual) D-Dimer Potassium Chloride 94.0 L Carbon Dioxide 38 H BUN Glucose 141 H Albumin 3.4 L Urine WBC (Auto)
[2021-08-29] MEDS: levoFLOXacin 500 MG TAB PO SCH (14:20)
[2021-08-29] MEDS: cefTRIAXone/NS 2 GM/100 ML 2 GM/100 ML BAG IV SCH (16:00)
--- NOTE | 2021-08-29 19:46 | Electrocardiograph Report ---
[facility] Test Date: 2021-08-26 Test Time: 10:12:53 Pat Name: DIONNA GIRALDO Department: Room: A356 Gender: M Blood Collector: KIMANI : 1970 Requested By: MARITA COLLINS Order Number: [id number] Reading MD: Kinjal Vela Measurements Intervals [place] Rate: 94 P: 56 ME: 147 QRS: 84 QRSD: 100 T: 42 QT: 363 QTc: 454 Interpretive Statements Sinus rhythm Probable left atrial enlargement Anterior infarct, old No previous ECG available for comparison Electronically Signed On 08-29-2021 19:45:56 EDT by Kinjal Vela
[2021-08-30] MEDS: amLODIPine 10 MG TAB PO SCH (09:37)
[2021-08-30] MEDS: levoFLOXacin 500 MG TAB PO SCH (09:41)
[2021-08-30] MEDS: AZITHROMYCIN 250 MG TAB PO SCH (09:43)
[2021-08-30] MEDS ORDERED: predniSONE 20 MG TAB PO NR (12:00)
[2021-08-30 12:44] VITALS: BP 103/54
--- NOTE | 2021-08-30 12:44 | Event Note ---
Date: 08/30/21 The patient's discharge was held until today due to awaiting DME with oxygen. Patient seen and examined and patient will be discharged home. Total visit time equals 30 minutes with greater than 50% spent on coordination of care and counseling
== END 2021-08-30 12:56 | disposition home or self-care (01) | DRG 193 ==
LOC: ED 08:50 → 3A 15:33
PROVIDERS: ADMIT Internal Medicine; ATTEND Hospitalist
DX: J16.8 Pneumonia due to other specified infectious organisms (principal); J96.01 Acute respiratory failure with hypoxia; E66.2 Morbid (severe) obesity with alveolar hypoventilation; F15.20 Other stimulant dependence, uncomplicated; Z20.822 Contact with and (suspected) exposure to COVID-19; Z68.42 Body mass index [BMI] 45.0-49.9, adult; J44.0 Chronic obstructive pulmonary disease with (acute) lower respiratory infection; F14.20 Cocaine dependence, uncomplicated; F17.213 Nicotine dependence, cigarettes, with withdrawal; Z83.3 Family history of diabetes mellitus; Z82.49 Family history of ischemic heart disease and other diseases of the circulatory system; Z71.6 Tobacco abuse counseling
CPT/HCPCS: 36415; 71045; 71275; 80048; 80053; 80307; 81001; 82550; 82553; 83690; 83735; 83880; 84484; 85007; 85025; 85379; 85610; 87086; 93005; 93306; 94760; 99406; G0378; C8929; J0696; J1940; J2920; Q9967; U0003